=== PATIENT | male | born 1935 | race Caucasian/White ===

== ENCOUNTER 2018-11-02 17:27 | Observation (INO) ==
--- NOTE | 2018-11-02 17:30 | Emergency Department Note ---
Disposition Clinical Impression: Hypoxemia, Acute bronchitis, History of CHF (congestive heart failure) Disposition: Admitted As Inpatient Condition: Good Time of Disposition: 21:12 General Adult HPI - General Stated complaint: "sick for a week" Time Seen by Provider: 11/02/18 17:30 Source: patient Mode of arrival: EMS Limitations: no limitations Nursing Notes Reviewed: Yes Vital Signs Reviewed: Yes - Related Data Home Medications Medication Instructions Recorded Confirmed Calcium Carbonate [Calcium] 500 mg PO DAILY 11/02/18 11/02/18 Carvedilol [Coreg] 6.25 mg PO BIDWM 11/02/18 11/02/18 Furosemide [Lasix] 20 mg PO DAILY 11/02/18 11/02/18 LORazepam [Ativan] 0.5 mg PO BID 11/02/18 11/02/18 Omeprazole [PriLOSEC] 20 mg PO DAILY 11/02/18 11/02/18 RX: Lisinopril [Zestril] 5 mg PO DAILY 11/02/18 11/02/18 Sertraline [Zoloft] 100 mg PO DAILY 11/02/18 11/02/18 Warfarin [Coumadin] 2.5 mg PO 2XW 11/02/18 11/02/18 Warfarin [Coumadin] 5 mg PO 5XW 11/02/18 11/02/18 Allergies Allergy/AdvReac Type Severity Reaction Status Date / Time bee venom protein (honey bee) Allergy See Verified 11/02/18 17:44 Comments Penicillins Allergy See Verified 11/02/18 17:44 Comments Course Course Narrative: The patient remained stable throughout his emergency department stay. His oxygen saturations remained above 95% on 2 L of nasal cannulated oxygen. A trial was attempted without the nasal cannula and his oxygen saturations dropped to 85%. Spoke with Dr. Cruz at 2100 and the patient will be admitted here in [place]. Vital Signs Temperature 98.1 F 11/02/18 17:35 Pulse Rate 86 11/02/18 17:35 Respiratory Rate 20 11/02/18 17:35 Blood Pressure 133/76 11/02/18 17:35 O2 Sat by Pulse Oximetry 92 11/02/18 17:35 Temperature 98.1 F 11/02/18 17:35 Pulse Rate 80 11/02/18 21:50 Respiratory Rate 18 11/02/18 22:30 Blood Pressure 124/78 11/02/18 22:30 O2 Sat by Pulse Oximetry 93 11/02/18 21:50 Oxygen Delivery Oxygen Delivery Nasal Cannula Medical Decision Making - Lab Data Lab results reviewed: Yes I reviewed the patient's lab results. Result diagrams: 11/02/18 18:10 11/02/18 18:10 Lab Results 11/02/18 11/02/18 11/02/18 Range/Units 18:10 18:10 18:10 WBC 8.3 (4.3-11.1) K/mcL RBC 4.18 L (4.19-5.50) M/mcL Hgb 14.8 (12.9-16.9) g/dL Hct 43.3 (37.5-50.1) % MCV 103.6 H (83.0-100.0) fL MCH 35.4 H (28.0-33.3) pg MCHC 34.2 (31.6-35.5) g/dL RDW 18.1 H (11.5-14.5) % Plt Count 133 L (140-400) K/mcL MPV 9.1 L (9.4-12.4) fL Immature Gran % 0.6 (0-4) % Seg Neutrophils % 77.3 % Lymphocytes % 12.0 % Monocytes % 8.9 % Eosinophils % 0.8 % Basophils % 0.4 % Neutrophils # 6.4 (1.6-8.9) K/mcL Lymphocytes # 1.0 (0.6-4.6) K/mcL Monocytes # 0.7 (0.0-1.3) K/mcL Eosinophils # 0.1 (0.0-0.6) K/mcL Basophils # 0.0 (0.0-0.2) K/mcL Platelet Estimate Normal (Normal) Anisocytosis 1+ A (Not Present) Sodium 135 L (136-145) mEq/L Potassium 3.6 (3.5-5.1) mEq/L Chloride 98 (98-107) mEq/L Carbon Dioxide 29 (23-29) mEq/L BUN 8 (8-23) mg/dL Creatinine 0.89 (0.70-1.30) mg/dL Est GFR ( Amer) > 60 (> 60) Est GFR (Non-Af Amer) > 60 (> 60) BUN/Creatinine Ratio 9 (6-26) Glucose 94 (70-105) mg/dL Calculated Osmolality 278 L (280-300) Lactic Acid (0.5-2.2) mmol/L Calcium 8.7 (8.6-10.3) mg/dL Total Bilirubin 1.6 H (0.3-1.0) mg/dL AST 39 (13-39) Units/L ALT 25 (7-52) Units/L Alkaline Phosphatase 260 H (34-104) Units/L B-Natriuretic Peptide 178 H (Less than 100) pg/mL Serum Total Protein 6.4 (6.4-8.9) g/dL Albumin 3.1 L (3.5-5.7) g/dL Globulin 3.3 (2.4-3.5) g/dL Albumin/Globulin Ratio 0.9 L (1.1-2.2) Urine Color (Yellow) Urine Clarity (Clear) Urine pH (5.0-8.0) pH Units Ur Specific [place] (1.010-1.025) Urine Protein (Neg-Trace) mg/dL Urine Glucose (UA) (Normal) mg/dL Urine Ketones (Negative) mg/dL Urine Blood (Negative) Urine Nitrite (Negative) Urine Bilirubin (Negative) Urine Urobilinogen (Normal) mg/dL Ur Leukocyte Esterase (Negative) Ur Culture Indicated? (NO) 11/02/18 11/02/18 Range/Units 18:10 18:10 WBC (4.3-11.1) K/mcL RBC (4.19-5.50) M/mcL Hgb (12.9-16.9) g/dL Hct (37.5-50.1) % MCV (83.0-100.0) fL MCH (28.0-33.3) pg MCHC (31.6-35.5) g/dL RDW (11.5-14.5) % Plt Count (140-400) K/mcL MPV (9.4-12.4) fL Immature Gran % (0-4) % Seg Neutrophils % % Lymphocytes % % Monocytes % % Eosinophils % % Basophils % % Neutrophils # (1.6-8.9) K/mcL Lymphocytes # (0.6-4.6) K/mcL Monocytes # (0.0-1.3) K/mcL Eosinophils # (0.0-0.6) K/mcL Basophils # (0.0-0.2) K/mcL Platelet Estimate (Normal) Anisocytosis (Not Present) Sodium (136-145) mEq/L Potassium (3.5-5.1) mEq/L Chloride (98-107) mEq/L Carbon Dioxide (23-29) mEq/L BUN (8-23) mg/dL Creatinine (0.70-1.30) mg/dL Est GFR ( Amer) (> 60) Est GFR (Non-Af Amer) (> 60) BUN/Creatinine Ratio (6-26) Glucose (70-105) mg/dL Calculated Osmolality (280-300) Lactic Acid 1.6 (0.5-2.2) mmol/L Calcium (8.6-10.3) mg/dL Total Bilirubin (0.3-1.0) mg/dL AST (13-39) Units/L ALT (7-52) Units/L Alkaline Phosphatase (34-104) Units/L B-Natriuretic Peptide (Less than 100) pg/mL Serum Total Protein (6.4-8.9) g/dL Albumin (3.5-5.7) g/dL Globulin (2.4-3.5) g/dL Albumin/Globulin Ratio (1.1-2.2) Urine Color Yellow (Yellow) Urine Clarity Clear (Clear) Urine pH 7.5 (5.0-8.0) pH Units Ur Specific [place] 1.015 (1.010-1.025) Urine Protein Negative (Neg-Trace) mg/dL Urine Glucose (UA) Normal (Normal) mg/dL Urine Ketones Negative (Negative) mg/dL Urine Blood Negative (Negative) Urine Nitrite Negative (Negative) Urine Bilirubin Negative (Negative) Urine Urobilinogen Normal (Normal) mg/dL Ur Leukocyte Esterase Negative (Negative) Ur Culture Indicated? NO (NO) - Radiology Data Radiology results reviewed: Yes I reviewed the patient's radiology results. 2 views of the chest: IMPRESSION: Cardiomegaly with small bilateral effusions and areas of atelectasis. Borderline for interstitial edema. D/ / Al Hills / Al Hills - EKG Data EKG #1 EKG attestation: Yes I reviewed and interpreted this EKG. EKG results narrative: Review EKG shows a normal sinus rhythm with a rate of 87, normal axis, no acute ST elevation or depression appreciated.
[2018-11-02] MEDS ORDERED: methylPREDNISolone 125 MG/2 ML VIAL IVP ONE (17:42)
[2018-11-02] MEDS ORDERED: Ipratropium/Albuterol Neb 3 ML IH ONE (17:42)
[2018-11-02 18:21] LABS: Bilirubin,Urine Negative (Negative); Blood,Urine Negative (Negative); Clarity,Urine Clear (Clear); Color,Urine Yellow (Yellow); Glucose,Urine (UA) Normal (Normal); Ketones,Urine Negative (Negative); Leukocyte Esterase,Urine Negative (Negative); Nitrite,Urine Negative (Negative); PH,Urine 7.5 pH Units (5.0-8.0); Protein,Urine Negative (Neg-Trace); Specific Gravity,Urine 1.015 (1.010-1.025); Urobilinogen,Urine Normal (Normal)
[2018-11-02 18:24] LABS: Basophils % 0.4 %; Eosinophils # 0.1 K/mcL (0.0-0.6); Eosinophils % 0.8 %; Hematocrit 43.3 % (37.5-50.1); Hemoglobin 14.8 g/dL (12.9-16.9); Immature Granulocytes % 0.6 % (0-4); Mean Corpuscular HGB Conc 34.2 g/dL (31.6-35.5); Mean Corpuscular Hemoglobin 35.4 pg (28.0-33.3); Mean Corpuscular Volume 103.6 fL (83.0-100.0); Mean Platelet Volume 9.1 fL (9.4-12.4); Monocytes # 0.7 K/mcL (0.0-1.3); Monocytes % 8.9 %; Neutrophils # 6.4 K/mcL (1.6-8.9); Platelet Count 133 K/mcL (140-400); Red Blood Count 4.18 M/mcL (4.19-5.50); Red Cell Distribution Width 18.1 % (11.5-14.5); Segmented Neutrophils % 77.3 %
[2018-11-02 18:35] LABS: Alanine Aminotransferase 25 Units/L (7-52); Albumin 3.1 g/dL (3.5-5.7); Albumin/Globulin Ratio 0.9 (1.1-2.2); Alkaline Phosphatase 260 Units/L (34-104); Aspartate Amino Transferase 39 Units/L (13-39); BUN/Creatinine Ratio 9 (6-26); Bilirubin,Total 1.6 mg/dL (0.3-1.0); Blood Urea Nitrogen 8 mg/dL (8-23); Calcium 8.7 mg/dL (8.6-10.3); Carbon Dioxide 29 mEq/L (23-29); Chloride 98 mEq/L (98-107); Globulin 3.3 g/dL (2.4-3.5); Glucose 94 mg/dL (70-105); Osmolality,Calculated 278 (280-300); Potassium 3.6 mEq/L (3.5-5.1); Sodium 135 mEq/L (136-145); Total Protein 6.4 g/dL (6.4-8.9); eGFR For Non-African Americans > 60 (> 60)
[2018-11-02 18:40] LABS: Anisocytosis 1+ (Not Present); Platelet Estimate Normal (Normal)
[2018-11-02] MEDS ORDERED: Levofloxacin 750 MG/150 ML 750 MG/150 ML BAG IVPB SCH (21:00)
[2018-11-02] MEDS ORDERED: Ipratropium/Albuterol Neb 3 ML IH PRN ×2 (21:20→22:37)
[2018-11-02] MEDS ORDERED: Naloxone 0.4 MG/ML INJ IVP PRN (22:37)
[2018-11-03] MEDS ORDERED: *HR* LORazepam 1 MG TABLET PO SCH (09:00)
[2018-11-03] MEDS ORDERED: Furosemide 20 MG TABLET PO SCH (09:00)
[2018-11-03 11:44] VITALS: BP 118/62
--- NOTE | 2018-11-03 14:15 | Internal Med History&Physical ---
Addendum entered and electronically signed by Gucci Cruz MD 11/03/18 14:25: I have personally performed a face to face evaluation on this patient. I have r eviewed and agree with the care plan. History and Exam by me shows: Patient was doing well until about one week ago. At that point, he developed a severe cough and this was productive of whitish phlegm in large amounts. He had mild dyspnea that developed on the last day or so before he presented to the emergency room, yesterday. He had no fever, chills, sweats, exposure to illness, etc. He denies other upper respiratory infection symptoms, dyspnea, etc. he denies past history of COPD or heart failure. He has chronic bilateral lower extremity edema for reasons which she is not sure. However, he has wraps of his lower extremities on regular basis. He is also on Coumadin for reasons he is not certain. Remainder of his history and physical were reviewed with patient. While he has long-standing lymphedema, he has no history of CHF or heart problems. He has a poor memory for details and refers frequently to his medication list. 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 Patient has no complaint of chest discomfort, dyspnea, orthopnea, breathing problems, palpitations, nausea or vomiting, constipation or diarrhea, other changes in bowel habits, heartburn, difficulty with urination, kidney problems or kidney stones, fevers chills or sweats, rash or itching, seizures, headache or lightheadedness, heat or cold intolerance, blood problems or anemia, or other new complaints, except as mentioned above. Review of systems is otherwise negative. Examination: (Except as mentioned above): General: In no apparent distress, alert and oriented 3. He is wearing oxygen at 2 L and denies dyspnea while doing so even though the oxygen is lying on his right maxilla. Head: Atraumatic and normocephalic. Eyes: Extraocular muscles are intact, pupils equal round and reactive to light and accommodation. Sclerae anicteric. Ears: External ears are normal to inspection and hearing is mildly diminished. Nose: Patent without lesion noted. Mouth: No intraoral lesions seen. Dentition is poor with several teeth missing or at least in part with multiple caries. Neck: Supple with trachea midline. There is no thyromegaly or adenopathy and carotids are 2+ without bruit heard. Respiratory: No use of accessory muscles. Lungs are remarkable for mild inspiratory wheezing but good airflow. He has a question of egophony which is minimal at the left upper lobe region. No fremitus. Cardiovascular: Regular rate and rhythm without murmur appreciated. Abdomen: Bowel sounds are normal. No hepatosplenomegaly masses or tenderness. Obese and therefore difficult to palpate deeply. Extremities: No cyanosis clubbing or edema, but he is wrapped at the calves, bilaterally. Pulses are palpable and he has mild edema of both feet but capillary refill is adequate and his feet are warm. There is no cord or calf tenderness palpable with his wraps. Neurological: A and O 3. Cranial nerves II through XII are intact. No focal deficits and no abnormal movements or postures. Skin: Warm and non-diaphoretic with no lesions noted. Breasts, pelvic and rectal: Not examined. Oxygen on room air is 94% stays at this level, even with sitting up in chair in minimal activity. Laboratory and x-rays are reviewed. Please see reports. Patient wants to go home and we said that if he is feeling up to it, he is able. We will send him on 10 days of Levaquin and ask that he follow with his family physician in about a week. Original Note: Date of Encounter: 11/03/18 Time of Encounter: 14:12 Assessment and Plan (1) Acute bronchitis Current visit: Yes Status: Acute Patient was evaluated emergency department after presenting with complaints of malaise and shortness of breath over the past week. Patient had complaints of having a productive cough, which she described as a thick white sputum. Initial chest x-ray showed no infectious process but did show vascular congestion and bilateral small pleural effusions. Patient was placed on Levaquin and admitted to the medical floor. This morning patient appears relaxed and currently denies any dyspnea. Continues with productive cough. Request and to possibly be discharged home. Currently afebrile. WBC 8.3 Qualifiers: Bronchitis organism: unspecified organism Qualified Code(s): J20.9 - Acute bronchitis, unspecified (2) Lymphedema Current visit: Yes Status: Chronic No acute issues. Patient presented with bilateral leg, and wraps, which she states home health nursing provides for him weekly. We will continue with current plan of care. Patient states he has a long history of chronic lymphedema (3) History of CHF (congestive heart failure) Current visit: Yes Status: Chronic No acute issues. Patient was admitted for hypoxia, malaise and dyspnea. This morning he states that his dyspnea has resolved. Chest x-ray did show interstitial ask for congestion and bilateral small pleural effusions. Admission BNP was within normal limits. We will continue with current medications. Internal Medicine - H&P: HPI Chief complaint: dyspnea, hypoxia Admitted From: Home Plans for Post Hospital Care: Home History of present illness: Mr. Gaona is a 83 year old male, who presented to emergency department with complaints of feeling ill for the past week. Patient had had complaints of dyspnea and a productive cough. Patient states that he is calm a small amount of a white thick sputum. Patient has a long history of CHF and chronic lymphedema bilateral lower extremities. Patient is a poor historian unable to relate why he is on most of his medications and difficulty being able to discuss is a remote medical history. Per medical records patient was shown to have been placed on oxygen while he is in emergency department and at that time, they had tried to wean his oxygen but had difficulty keeping his saturations above 90%. It was decided that time to have patient admitted overnight for further evaluation. Patient was started on Levaquin for possible bronchitis. Currently patient states that his respiratory effort has improved overnight, but he con tinues to have a productive cough with a thick white sputum received. Initial chest x-ray showed small bilateral pleural effusions and vascular congestion, but no infectious process noted. Patient denies any fever or chills. He denies any chest discomforts or palpitations. Patient presented with leg wraps in place and states that home health nursing changes as well as weekly. Patient states that he is unable to relate why he has Coumadin as a home medication. Patient currently requesting to be discharged to home Past Med Surg Social Fam HX - Past Medical History Medical history: arthritis, atrial fibrillation, CHF, GERD, hyperlipidemia, hypertension Psychiatric history: anxiety, depression - Past Surgical History Surgical History: cholecystectomy, knee replacement Additional surgical history: Left Knee Replacement, Right Hip Replacement - Social History Smoking Status: Former smoker Alcohol use: rarely Drug use: none Internal Medicine - H&P: Meds Calcium Carbonate [Calcium] 500 mg PO DAILY 11/02/18 [History] Carvedilol [Coreg] 6.25 mg PO BIDWM 11/02/18 [History] Furosemide [Lasix] 20 mg PO DAILY 11/02/18 [History] LORazepam [Ativan] 0.5 mg PO BID 11/02/18 [History] Lisinopril [Zestril] 5 mg PO DAILY 11/02/18 [History] Omeprazole [PriLOSEC] 20 mg PO DAILY 11/02/18 [History] Sertraline [Zoloft] 100 mg PO DAILY 11/02/18 [History] Warfarin [Coumadin] 2.5 mg PO 2XW 11/02/18 [History] Warfarin [Coumadin] 5 mg PO 5XW 11/02/18 [History] Allergy/AdvReac Type Severity Reaction Status Date / Time bee venom protein (honey bee) Allergy See Verified 11/02/18 17:44 Comments Penicillins Allergy See Verified 11/02/18 17:44 Comments All Systems PM: A 10-system review of systems was performed and is negative for pertinent findings except as documented above in the HPI. - Constitutional Constitutional: as per HPI, no chills, no fever(s), no night sweats - EENT Eyes: as per HPI, no change in vision, no discharge, no pain, no photophobia Ears: no ear discharge, no ear pain, no tinnitus Nose, mouth and throat: as per HPI, no dysphagia, no nasal discharge, no neck pain, no sore throat - Breasts Breasts: as per HPI - Cardiovascular Cardiovascular ROS IM: as per HPI, no chest pain, no diaphoresis, no dyspnea, no lightheadedness, no palpitations, no syncope - Respiratory Respiratory: as per HPI, no cough, no dyspnea, no wheezing, no excessive phlegm production - Gastrointestinal Gastrointestinal: as per HPI, no abdominal pain, no diarrhea, no hematemesis, no hematochezia, no melena, no nausea, no vomiting - Genitourinary Genitourinary ROS male: as per HPI - Musculoskeletal Musculoskeletal ROS IM: as per HPI, no numbness, no tingling - Integumentary Integumentary IM: as per HPI, no rash, no unusual bruising - Neurological Neurological ROS: as per HPI, no confusion, no convulsions, no focal weakness, no numbness, no tingling, no tremor(s) - Hematologic/Lymphatic Hematologic/Lymphatic: no easy bruising - Constitutional Vitals: Temp Pulse Resp BP Pulse Ox 97.6 F 73 16 118/62 94 11/03/18 11:42 11/03/18 11:42 11/03/18 11:42 11/03/18 11:42 11/03/18 11:42 General appearance: Present: A&O X 3, pleasant - Head Head exam: Present: atraumatic, normocephalic - Eye Eye exam: Present: PERRL, conjuntiva pink, sclera anicteric Pupils: Present: PERRL - Neck Neck exam general surgery: Present: supple, trachea midline. Absent: lymphadenopathy - Respiratory Respiratory exam: Present: CTAB. Absent: accessory muscle use, rales, rhonchi, wheezes Additional comments: Lungs are clear throughout upper [place] with diminished breath sounds. Respiratory effort appears relaxed. No productive cough noted during exam. - Cardiovascular Cardiovascular exam: Present: RRR, +S1, +S2. Absent: diastolic murmur, gallop, rubs, systolic murmur - GI/Abdominal GI/Abdominal exam: Present: normal bowel sounds, soft, no peritoneal signs. Absent: distended, tenderness - Extremities Exam Extremities exam: Present: pedal edema, warm, radial pulses palpable and symmetrical. Absent: calf tenderness, cyanotic Additional comments: Patient was bilateral [place] wraps to legs. - Neurological Exam Neurological exam: Present: CN II-XII intact, oriented X3, no focal deficits. Absent: pronater drift, facial droop, speech deficit - Skin Skin exam: Present: dry, intact Internal Med - H&P Results - Labs CBC & Chem 7: 11/02/18 18:10 11/02/18 18:10 Labs: Short CBC 11/02/18 Range/Units 18:10 WBC 8.3 (4.3-11.1) K/mcL Hgb 14.8 (12.9-16.9) g/dL Hct 43.3 (37.5-50.1) % Plt Count 133 L (140-400) K/mcL Neutrophils # 6.4 (1.6-8.9) K/mcL BMP 11/02/18 18:10 Sodium 135 L Potassium 3.6 Chloride 98 Carbon Dioxide 29 BUN 8 Creatinine 0.89 Glucose 94 Calcium 8.7 Liver Function 11/02/18 Range/Units 18:10 Total Bilirubin 1.6 H (0.3-1.0) mg/dL AST 39 (13-39) Units/L ALT 25 (7-52) Units/L Alkaline Phosphatase 260 H (34-104) Units/L Albumin 3.1 L (3.5-5.7) g/dL Urine 11/02/18 Range/Units 18:10 Urine Color Yellow (Yellow) Urine Clarity Clear (Clear) Urine pH 7.5 (5.0-8.0) pH Units Ur Specific [place] 1.015 (1.010-1.025) Urine Protein Negative (Neg-Trace) mg/dL Urine Glucose (UA) Normal (Normal) mg/dL - Impressions ITS Impressions Chest X-Ray 11/02/18 17:41 IMPRESSION: Cardiomegaly with small bilateral effusions and areas of atelectasis. Borderline for interstitial edema. D/ / Al Hills / Al Hills Interpreting Provider: Al Hills
--- NOTE | 2018-11-03 14:27 | Discharge Summary ---
Addendum entered and electronically signed by Gucci Cruz MD 11/03/18 14:34: I have personally performed a face to face evaluation on this patient. I have r eviewed and agree with the care plan. History and Exam by me shows: Please see my H&P addendum, today. Original Note: Orders not resulted at time of discharge: Pending orders 11/02/18 17:41 ECG 12 lead ECG [ECG] Stat 11/02/18 21:17 Culture,Blood [BC] Stat Date of Encounter: 11/03/18 Time of Encounter: 14:24 - Discharge Diagnosis (1) Acute bronchitis Priority: Primary Status: Acute Comments: Patient had presented with complaints of malaise and dyspnea with a productive cough. Admission chest x-ray showedacute infectious process. Patient has been started on Levaquin and will continue on oral Levaquin 500 mg daily for 10 days. A prescription will be provided. A she has a follow-up with his PCP in one week. Qualifiers: Bronchitis organism: unspecified organism Qualified Code(s): J20.9 - Acute bronchitis, unspecified (2) Lymphedema Priority: Secondary Status: Chronic Comments: No acute issues. Patient has bilateral [place] leg wraps that he presented to emergency department with. Patient will continue with home health visits and return to his PCP for further evaluation and treatment. (3) History of CHF (congestive heart failure) Priority: Secondary Status: Chronic Comments: No acute issues during his stay. Patient's chest x-ray did show vascular congestion and bilateral small pleural effusions. Patient currently able to maintain oxygen levels greater than 90% on room air. We will be discharged to home with Levaquin for possible bronchitis and is instructed to follow-up with his PCP for further violation and treatment. Hospital course: Mr. Gaona is a 83 year old male, who presented to emergency department with complaints of feeling ill for the past week. Patient had had complaints of dyspnea and a productive cough. Patient states that he is calm a small amount of a white thick sputum. Patient has a long history of CHF and chronic lymphedema bilateral lower extremities. Patient is a poor historian unable to relate why he is on most of his medications and difficulty being able to discuss is a remote medical history. Per medical records patient was shown to have been placed on oxygen while he is in emergency department and at that time, they had tried to wean his oxygen but had difficulty keeping his saturations above 90%. Today patient is able to maintain his oxygen saturation greater than 90% while on room air. Patient was evaluated while both at rest and during ambulation. Patient was started on Levaquin for possible bronchitis and will continue on oral Levaquin 500 mg daily for 10 days. Prescription will be provided.. Currently patient states that his respiratory effort has improved overnight, but he continues to have a productive cough with a thick white sputum received. Initial chest x-ray showed small bilateral pleural effusions and vascular congestion, but no infectious process noted. Patient denies any fever or chills. He denies any chest discomforts or palpitations. Patient presented with leg wraps in place and states that home health nursing changes the wraps weekly. Patient is recommended to follow up with his family physician within one week. Discharge discussed with: patient Time spent discussing smoking cessation with patient: 3 to 10 minutes - Time Spent with Patient Total time spent providing and/or coordinating discharge services: Less than 30 minutes - Discharge Medications Home Medications: Calcium Carbonate [Calcium] 500 mg PO DAILY 11/02/18 [History] Carvedilol [Coreg] 6.25 mg PO BIDWM 11/02/18 [History] Furosemide [Lasix] 20 mg PO DAILY 11/02/18 [History] LORazepam [Ativan] 0.5 mg PO BID 11/02/18 [History] Lisinopril [Zestril] 5 mg PO DAILY 11/02/18 [History] Omeprazole [PriLOSEC] 20 mg PO DAILY 11/02/18 [History] Sertraline [Zoloft] 100 mg PO DAILY 11/02/18 [History] Warfarin [Coumadin] 2.5 mg PO 2XW 11/02/18 [History] Warfarin [Coumadin] 5 mg PO 5XW 11/02/18 [History] Allergies/Adverse Reactions: Allergy/AdvReac Type Severity Reaction Status Date / Time bee venom protein (honey bee) Allergy See Verified 11/02/18 17:44 Comments Penicillins Allergy See Verified 11/02/18 17:44 Comments Date of admission: 11/02/18 22:59 Primary care physician: PCP NONE Discharging clinician: Gucci Cruz - Constitutional Vitals: Temp Pulse Resp BP Pulse Ox 97.6 F 73 16 118/62 94 11/03/18 11:42 11/03/18 11:42 11/03/18 11:42 11/03/18 11:42 11/03/18 11:42 General appearance: Present: A&O X 3, pleasant - Head Head exam: Present: atraumatic, normocephalic - Eye Eye exam: Present: PERRL, conjuntiva pink, sclera anicteric Pupils: Present: PERRL - Neck Neck exam general surgery: Present: supple, trachea midline. Absent: lymphadenopathy - Respiratory Respiratory exam: Present: CTAB. Absent: accessory muscle use, rales, rhonchi, wheezes Additional comments: Lungs are clear throughout upper [place] with diminished bases. Respiratory effort appears relaxed. No productive cough noted during exam - Cardiovascular Cardiovascular exam: Present: RRR, +S1, +S2. Absent: diastolic murmur, gallop, rubs, systolic murmur - GI/Abdominal GI/Abdominal exam: Present: normal bowel sounds, soft, no peritoneal signs. Absent: distended, tenderness - Extremities Exam Extremities exam: Present: pedal edema, warm, radial pulses palpable and symmetrical. Absent: calf tenderness, cyanotic Additional comments: Bilateral legs with [place] wraps. - Neurological Exam Neurological exam: Present: CN II-XII intact, oriented X3, no focal deficits. Absent: pronater drift, facial droop, speech deficit - Skin Skin exam: Present: dry, intact - Patient Status Disposition: Home, Self-Care Condition: Good Functional capacity at discharge: independent ambulation Overall status at discharge: patient is progressing back to baseline - Discharge Instructions Follow Up With: NONE,PCP [Primary Care Provider] - Forms: ED Satisfaction Letter - Diet and Activity Activity: increase activity as tolerated Diet: low fat, low cholesterol, low salt diet
--- NOTE | 2018-11-03 14:52 | Physician Discharge Referral ---
Home Health/Hosp Referral Info Transfer to: Home Health Provider in Charge Post Discharge: PCP - Diagnosis (1) Acute bronchitis Priority: Primary Status: Acute (2) Lymphedema Priority: Secondary Status: Chronic (3) History of CHF (congestive heart failure) Priority: Secondary Status: Chronic - Respiratory Orders Oxygen / L per min (prn) Smoking Cessation: Smoking cessation has been advised. For more information, call the [place] Tobacco Quit Line at 3-953-JJXF-NOW. - Diet/Nutrition Diet/Nutrition Orders: No Added Salt (LIZZETTE), Cardiac - Activity Activity Orders: Up ad dolores, Ambulate - Services Needed Following services are medically necessary services: Nursing - Transfer Medications Prescriptions: Albuterol Sulfate [Albuterol Inhaler] 2 puff IH Q6HR PRN #1 inhaler PRN Reason: Dyspnea levoFLOXacin [Levaquin] 500 mg PO DAILY 10 Days #10 tablet Home Medications: Calcium Carbonate [Calcium] 500 mg PO DAILY 11/02/18 [History] Carvedilol [Coreg] 6.25 mg PO BIDWM 11/02/18 [History] Furosemide [Lasix] 20 mg PO DAILY 11/02/18 [History] LORazepam [Ativan] 0.5 mg PO BID 11/02/18 [History] Lisinopril [Zestril] 5 mg PO DAILY 11/02/18 [History] Omeprazole [PriLOSEC] 20 mg PO DAILY 11/02/18 [History] Sertraline [Zoloft] 100 mg PO DAILY 11/02/18 [History] Warfarin [Coumadin] 2.5 mg PO 2XW 11/02/18 [History] Warfarin [Coumadin] 5 mg PO 5XW 11/02/18 [History] Albuterol Sulfate [Albuterol Inhaler] 2 puff IH Q6HR PRN #1 inhaler 11/03/18 [Rx] levoFLOXacin [Levaquin] 500 mg PO DAILY 10 Days #10 tablet 11/03/18 [Rx] Allergies/Adverse Reactions: Allergy/AdvReac Type Severity Reaction Status Date / Time bee venom protein (honey bee) Allergy See Verified 11/02/18 17:44 Comments Penicillins Allergy See Verified 11/02/18 17:44 Comments Certification: Further, I certify that my clinical findings support that this patient is homebound (i.e. absences from home require considerable and taxing effort and are for medical reasons or spiritism services or infrequently or short duration when for other reasons) because: Homebound Reason: Leaving home requires considerable and taxing effort due to condition Attestation: My signature below is to certify that this patient is under my care and that I, or nurse practitioner, or a physician's bilingual office assistant working with me, has a [id number] encounter with this patient.
[2018-11-03] MEDS ORDERED: *HR* Warfarin 5 MG TABLET PO SCH (18:00)
[2018-11-03] MEDS ORDERED: Levofloxacin 750 MG/150 ML 750 MG/150 ML BAG IVPB SCH (21:00)
--- NOTE | 2018-11-05 15:32 | Electrocardiograph Report ---
[address] [id number] Test Date: 2018-11-02 Pat Name: David Gaona Department: 2000 Room: 119 Gender: M [employer]: MEEK : 1935 Requested By: Herb Frias Order Number: [id number] Reading MD: Octavio French Measurements Intervals [place] Rate: 87 P: 22 SD: 200 QRS: -9 QRSD: 95 T: 6 QT: 387 QTc: 431 Interpretive Statements SINUS RHYTHM LOW QRS VOLTAGE IN PRECORDIAL LEADS INCOMPLETE RIGHT BUNDLE BRANCH BLOCK Electronically Signed On 11-05-2018 15:31:09 EST by Octavio French
[2018-11-07] MEDS ORDERED: *HR* Warfarin 2.5 MG TABLET PO SCH (18:00)
== END 2018-11-03 18:05 | disposition home or self-care (01) ==
LOC: INPGRE 17:27 → EMEROOGRE 17:27 → INPGRE 21:19 → UNDODISIN 11-03 18:05

== ENCOUNTER 2021-02-24 13:20 | Inpatient (IN) ==
[2021-02-24 13:42] LABS: Basophils % 0.2 %; Hematocrit 39.6 % (37.5-50.1); Hemoglobin 13.4 g/dL (12.9-16.9); Immature Granulocytes % 1.4 % (0-4); Lymphocytes # 0.7 K/mcL (0.6-4.6); Lymphocytes % 4.2 %; Mean Corpuscular HGB Conc 33.8 g/dL (31.6-35.5); Mean Corpuscular Volume 109.4 fL (83.0-100.0); Mean Platelet Volume 9.5 fL (9.4-12.4); Monocytes # 0.5 K/mcL (0.0-1.3); Monocytes % 3.1 %; Neutrophils # 14.8 K/mcL (1.6-8.9); Red Blood Count 3.62 M/mcL (4.19-5.50); Red Cell Distribution Width 15.7 % (11.5-14.5); Segmented Neutrophils % 91.1 %; White Blood Count 16.2 K/mcL (4.3-11.1)
[2021-02-24 13:44] LABS: Platelet Count 98 K/mcL (140-400)
[2021-02-24 13:48] LABS: INR 1.8; Prothrombin Time 20.6 Seconds (9.4-12.1)
[2021-02-24 13:50] LABS: VBG HCO3 27 mEq/L (21-27); VBG PCO2 43 mmHg (41-51); VBG PO2 38 mmHg (25-50)
[2021-02-24 13:56] LABS: Troponin I < 0.03 ng/mL (< 0.04)
[2021-02-24 14:01] LABS: Alanine Aminotransferase 32 Units/L (7-52); Albumin 2.8 g/dL (3.5-5.7); Albumin/Globulin Ratio 0.8 (1.1-2.2); Alkaline Phosphatase 195 Units/L (34-104); Aspartate Amino Transferase 44 Units/L (13-39); BUN/Creatinine Ratio 11 (6-26); Bilirubin,Total 1.1 mg/dL (0.3-1.0); Blood Urea Nitrogen 15 mg/dL (8-23); Calcium 8.2 mg/dL (8.6-10.3); Carbon Dioxide 26 mEq/L (23-29); Chloride 98 mEq/L (98-107); Creatine Kinase 20 Units/L (30-223); Globulin 3.4 g/dL (2.4-3.5); Glucose 112 mg/dL (70-105); Magnesium 1.1 mg/dL (1.6-2.6); Osmolality,Calculated 282 (280-300); Phosphorous 2.3 mg/dL (2.7-4.5); Potassium 3.7 mEq/L (3.5-5.1); Sodium 135 mEq/L (136-145); Total Protein 6.2 g/dL (6.4-8.9); eGFR For African Americans > 60 (> 60); eGFR For Non-African Americans 50 (> 60)
[2021-02-24 14:09] LABS: Thyroid Stimulating Hormone 3.801 mcIU/mL (0.340-5.600)
[2021-02-24] MEDS ORDERED: 0.9 % Sodium Chloride 1,000 ML ONE (14:25)
[2021-02-24] MEDS ORDERED: Ondansetron 4 MG/2 ML VIAL IVP ONE (14:50)
[2021-02-24] MEDS ORDERED: 0.9 % Sodium Chloride 1,000 ML IVC SCH ×2 (15:00→18:52)
[2021-02-24] MEDS ORDERED: Clindamycin 900 MG/50 ML 900 MG/50 ML IV.SOLN IVPB ONE (15:16)
[2021-02-24] MEDS: ceFAZolin 1,000 MG in Water for inj. (sterile) 10 ML IVP SCH ×2 (15:32→16:36)
[2021-02-24] MEDS ORDERED: levoFLOXacin 750 MG/150 ML 750 MG/150 ML BAG IVPB ONE (15:39)
[2021-02-24] MEDS ORDERED: Doxycycline 100 MG in 0.9 % Sodium Chloride Mini Bag 100 ML IVPB ONE (15:39)
[2021-02-24 17:24] LABS: Bilirubin,Urine Small (Negative); Blood,Urine Large (Negative); Clarity,Urine Cloudy (Clear); Color,Urine Amber (Yellow); Glucose,Urine (UA) Normal (Normal); Ketones,Urine Trace mg/dL (Negative); Leukocyte Esterase,Urine Small (Negative); Nitrite,Urine Positive (Negative); PH,Urine 5.5 pH Units (5.0-8.0); Protein,Urine 100 mg/dL (Neg-Trace); Urobilinogen,Urine Normal (Normal)
[2021-02-24 17:30] LABS: Bacteria,Urine Many per hpf (None-Few); Squamous Epithelial Cell,Urine Moderate per hpf (None-Few); WBC,Urine 30-50 per hpf (0-3)
[2021-02-24] MEDS ORDERED: Furosemide 20 MG TABLET PO SCH (18:52)
[2021-02-24] MEDS ORDERED: Ondansetron 4 MG/2 ML VIAL IVP PRN ×3 (18:52→19:18)
[2021-02-24] MEDS ORDERED: Doxycycline 100 MG in 0.9 % Sodium Chloride Mini Bag 100 ML IVPB SCH (18:52)
[2021-02-24] MEDS ORDERED: Naloxone 0.4 MG/ML INJ IVP PRN ×2 (18:52→19:13)
[2021-02-24] MEDS ORDERED: MOM Conc 10 ML UD.LIQ PO PRN (19:13)
[2021-02-24] MEDS ORDERED: Dextrose Gel 15 GM/37.5 ML TUBE PO PRN ×2 (19:26)
[2021-02-24] MEDS ORDERED: D5% in Water 1,000 ML IVC PRN (19:26)
[2021-02-24] MEDS ORDERED: *HR* Dextrose 50 % in Water (Vial) 50 ML VIAL IVP PRN (19:26)
[2021-02-24] MEDS: Insulin LISPRO 300 UNITS/3 ML VIAL SUBQ SCH (19:52)
[2021-02-24] MEDS ORDERED: levoFLOXacin 500 MG/100 ML 500 MG/100 ML BAG IVPB SCH (20:00)
[2021-02-24] MEDS: 0.9 % Sodium Chloride 1,000 ML IVC SCH (20:56)
[2021-02-24] MEDS ORDERED: *HR* Warfarin 2.5 MG TABLET PO SCH (21:15)
[2021-02-24] MEDS: *HR* LORazepam 0.5 MG TABLET PO SCH (22:37)
[2021-02-24] MEDS: Ipratropium/Albuterol Neb 3 ML IH SCH (23:44)
[2021-02-25] MEDS ORDERED: ceFAZolin 1,000 MG in Water for inj. (sterile) 10 ML IVP SCH
[2021-02-25] MEDS: 0.9 % Sodium Chloride 1,000 ML IVC SCH (03:04)
[2021-02-25] MEDS ORDERED: 0.9 % Sodium Chloride 1,000 ML IVC SCH ×2 (03:24→05:00)
[2021-02-25] MEDS: Ipratropium/Albuterol Neb 3 ML IH SCH ×4 (04:14→20:49)
[2021-02-25 05:06] LABS: Hematocrit 32.5 % (37.5-50.1); Mean Corpuscular HGB Conc 33.8 g/dL (31.6-35.5); Mean Corpuscular Hemoglobin 36.4 pg (28.0-33.3); Mean Corpuscular Volume 107.6 fL (83.0-100.0); Red Blood Count 3.02 M/mcL (4.19-5.50); Red Cell Distribution Width 15.4 % (11.5-14.5); White Blood Count 10.4 K/mcL (4.3-11.1)
[2021-02-25 05:10] LABS: INR 1.7; Platelet Count 68 K/mcL (140-400); Prothrombin Time 19.7 Seconds (9.4-12.1)
[2021-02-25 05:20] LABS: Alanine Aminotransferase 19 Units/L (7-52); Albumin 2.2 g/dL (3.5-5.7); Albumin/Globulin Ratio 0.8 (1.1-2.2); Alkaline Phosphatase 125 Units/L (34-104); Aspartate Amino Transferase 24 Units/L (13-39); BUN/Creatinine Ratio 16 (6-26); Bilirubin,Total 0.9 mg/dL (0.3-1.0); Blood Urea Nitrogen 20 mg/dL (8-23); Calcium 7.4 mg/dL (8.6-10.3); Carbon Dioxide 25 mEq/L (23-29); Chloride 102 mEq/L (98-107); Globulin 2.8 g/dL (2.4-3.5); Glucose 74 mg/dL (70-105); Magnesium 1.7 mg/dL (1.6-2.6); Osmolality,Calculated 277 (280-300); Phosphorous 1.9 mg/dL (2.7-4.5); Potassium 3.3 mEq/L (3.5-5.1); Sodium 133 mEq/L (136-145); eGFR For African Americans > 60 (> 60); eGFR For Non-African Americans 53 (> 60)
[2021-02-25] MEDS ORDERED: CeFAZolin 2 GM/120 ML BAG IVPB SCH (08:00)
[2021-02-25 08:39] LABS: Estimated Average Glucose 94 mg/dl; Hemoglobin A1C 4.9 %
[2021-02-25] MEDS ORDERED: *HR* Warfarin 5 MG TABLET PO SCH ×2 (09:00→18:00)
[2021-02-25] MEDS: Insulin LISPRO 300 UNITS/3 ML VIAL SUBQ SCH ×4 (09:12→20:29)
[2021-02-25] MEDS: lisinopriL 5 MG TABLET PO SCH (09:33)
[2021-02-25] MEDS: carvediloL 6.25 MG TABLET PO SCH ×2 (09:33→16:56)
[2021-02-25] MEDS: *HR* LORazepam 0.5 MG TABLET PO SCH ×2 (09:33→20:29)
[2021-02-25] MEDS: Cholecalciferol (D-3) 1,000 UNIT (25MCG) TABLET PO SCH (09:33)
[2021-02-25] MEDS: Doxycycline 100 MG in 0.9 % Sodium Chloride Mini Bag 100 ML IVPB SCH (12:04)
[2021-02-25] MEDS ORDERED: Warfarin perPT PO PRN ×2 (18:00)
[2021-02-25] MEDS: Acetaminophen 325 MG TABLET PO PRN (20:43)
[2021-02-26] MEDS: Ipratropium/Albuterol Neb 3 ML IH SCH ×4 (03:32→21:24)
[2021-02-26] MEDS: Doxycycline 100 MG in 0.9 % Sodium Chloride Mini Bag 100 ML IVPB SCH ×2 (04:17→13:10)
[2021-02-26] MEDS: Acetaminophen 325 MG TABLET PO PRN ×2 (04:59→21:21)
[2021-02-26 07:07] LABS: INR 1.5; Prothrombin Time 17.6 Seconds (9.4-12.1)
[2021-02-26] MEDS: ceFAZolin 1,000 MG in Water for inj. (sterile) 10 ML IVP SCH (07:41)
[2021-02-26] MEDS: Insulin LISPRO 300 UNITS/3 ML VIAL SUBQ SCH ×4 (08:15→21:36)
[2021-02-26] MEDS: Cholecalciferol (D-3) 1,000 UNIT (25MCG) TABLET PO SCH (08:18)
[2021-02-26] MEDS: lisinopriL 5 MG TABLET PO SCH (08:19)
[2021-02-26] MEDS: *HR* LORazepam 0.5 MG TABLET PO SCH ×2 (08:19→21:22)
[2021-02-26] MEDS: carvediloL 6.25 MG TABLET PO SCH ×2 (08:19→16:48)
[2021-02-26 11:43] LABS: Hematocrit 33.9 % (37.5-50.1); Hemoglobin 11.5 g/dL (12.9-16.9); Mean Corpuscular HGB Conc 33.9 g/dL (31.6-35.5); Mean Corpuscular Hemoglobin 37.2 pg (28.0-33.3); Mean Corpuscular Volume 109.7 fL (83.0-100.0); Red Blood Count 3.09 M/mcL (4.19-5.50); Red Cell Distribution Width 15.6 % (11.5-14.5); White Blood Count 7.6 K/mcL (4.3-11.1)
[2021-02-26 11:50] LABS: Platelet Count 70 K/mcL (140-400)
[2021-02-26 11:55] LABS: Calcium 7.9 mg/dL (8.6-10.3); Magnesium 1.8 mg/dL (1.6-2.6); Potassium 3.5 mEq/L (3.5-5.1)
[2021-02-26] MEDS ORDERED: *HR* Warfarin 7.5 MG TABLET PO ONE (18:00)
[2021-02-26] MEDS ORDERED: levoFLOXacin 750 MG/150 ML 750 MG/150 ML BAG IVPB SCH (21:00)
[2021-02-26] MEDS: Furosemide 20 MG/2 ML VIAL IVP SCH (21:36)
[2021-02-27] MEDS ORDERED: Doxycycline 100 MG VIAL ONE (00:06)
[2021-02-27] MEDS: Doxycycline 100 MG in 0.9 % Sodium Chloride Mini Bag 100 ML IVPB SCH ×2 (00:12→12:33)
[2021-02-27] MEDS: Ipratropium/Albuterol Neb 3 ML IH SCH ×4 (03:41→21:38)
[2021-02-27] MEDS: Acetaminophen 325 MG TABLET PO PRN (05:07)
[2021-02-27] MEDS: Insulin LISPRO 300 UNITS/3 ML VIAL SUBQ SCH ×4 (08:45→21:39)
[2021-02-27] MEDS: *HR* LORazepam 0.5 MG TABLET PO SCH (08:49)
[2021-02-27] MEDS: Cholecalciferol (D-3) 1,000 UNIT (25MCG) TABLET PO SCH (08:49)
[2021-02-27] MEDS: Furosemide 20 MG/2 ML VIAL IVP SCH ×2 (08:49→21:40)
[2021-02-27] MEDS: lisinopriL 5 MG TABLET PO SCH (08:49)
[2021-02-27] MEDS: carvediloL 6.25 MG TABLET PO SCH ×2 (08:49→16:59)
[2021-02-27 09:16] LABS: INR 2.1; Prothrombin Time 24.2 Seconds (9.4-12.1)
[2021-02-27] MEDS ORDERED: Perflutren Lipid Microsphere 1.3 ML in 0.9 % Sodium Chloride 8.7 ML IVP PRN (14:49)
[2021-02-27] MEDS: cefTRIAXone 1,000 MG in 0.9 % Sodium Chloride Mini Bag 100 ML IVPB SCH (15:27)
[2021-02-27] MEDS: Azithromycin 500 MG in 0.9 % Sodium Chloride 250 ML IVPB SCH (15:27)
[2021-02-27] MEDS ORDERED: *HR* Warfarin 2.5 MG TABLET PO ONE (18:00)
[2021-02-27] MEDS: Melatonin 3 MG TABLET PO PRN (21:39)
[2021-02-28] MEDS: Ipratropium/Albuterol Neb 3 ML IH SCH ×4 (03:49→22:00)
[2021-02-28 05:57] LABS: Hematocrit 36.3 % (37.5-50.1); Hemoglobin 12.3 g/dL (12.9-16.9); Mean Corpuscular HGB Conc 33.9 g/dL (31.6-35.5); Mean Corpuscular Hemoglobin 36.7 pg (28.0-33.3); Mean Corpuscular Volume 108.4 fL (83.0-100.0); Mean Platelet Volume 9.6 fL (9.4-12.4); Red Blood Count 3.35 M/mcL (4.19-5.50); Red Cell Distribution Width 15.5 % (11.5-14.5); White Blood Count 5.8 K/mcL (4.3-11.1)
[2021-02-28 06:05] LABS: INR 2.5; Prothrombin Time 27.9 Seconds (9.4-12.1)
[2021-02-28 06:15] LABS: Platelet Count 81 K/mcL (140-400)
[2021-02-28 06:20] LABS: BUN/Creatinine Ratio 22 (6-26); Blood Urea Nitrogen 29 mg/dL (8-23); Carbon Dioxide 27 mEq/L (23-29); Chloride 102 mEq/L (98-107); Glucose 87 mg/dL (70-105); Osmolality,Calculated 285 (280-300); Potassium 3.3 mEq/L (3.5-5.1); Sodium 135 mEq/L (136-145); eGFR For African Americans > 60 (> 60); eGFR For Non-African Americans 52 (> 60)
[2021-02-28] MEDS: Insulin LISPRO 300 UNITS/3 ML VIAL SUBQ SCH ×4 (07:59→21:32)
[2021-02-28] MEDS: cefTRIAXone 1,000 MG in 0.9 % Sodium Chloride Mini Bag 100 ML IVPB SCH (08:01)
[2021-02-28] MEDS: Cholecalciferol (D-3) 1,000 UNIT (25MCG) TABLET PO SCH (08:01)
[2021-02-28] MEDS: carvediloL 6.25 MG TABLET PO SCH ×2 (08:01→15:54)
[2021-02-28] MEDS: lisinopriL 5 MG TABLET PO SCH (08:01)
[2021-02-28] MEDS: Furosemide 20 MG/2 ML VIAL IVP SCH ×2 (08:01→21:32)
[2021-02-28] MEDS: Azithromycin 500 MG in 0.9 % Sodium Chloride 250 ML IVPB SCH (15:52)
[2021-02-28] MEDS ORDERED: *HR* Warfarin 2.5 MG TABLET PO ONE (18:00)
[2021-02-28] MEDS: Melatonin 3 MG TABLET PO PRN (21:32)
[2021-03-01] MEDS: Ipratropium/Albuterol Neb 3 ML IH SCH ×4 (04:19→22:02)
[2021-03-01] MEDS: Insulin LISPRO 300 UNITS/3 ML VIAL SUBQ SCH ×4 (08:35→21:55)
[2021-03-01] MEDS: Furosemide 20 MG/2 ML VIAL IVP SCH ×2 (08:42→21:54)
[2021-03-01] MEDS: cefTRIAXone 1,000 MG in 0.9 % Sodium Chloride Mini Bag 100 ML IVPB SCH (08:42)
[2021-03-01] MEDS: carvediloL 6.25 MG TABLET PO SCH ×2 (08:45→16:38)
[2021-03-01] MEDS: Cholecalciferol (D-3) 1,000 UNIT (25MCG) TABLET PO SCH (08:45)
[2021-03-01] MEDS: lisinopriL 5 MG TABLET PO SCH (08:45)
[2021-03-01 13:18] LABS: INR 2.3; Prothrombin Time 25.8 Seconds (9.4-12.1)
[2021-03-01] MEDS: Azithromycin 500 MG in 0.9 % Sodium Chloride 250 ML IVPB SCH (16:38)
[2021-03-01] MEDS ORDERED: *HR* Warfarin 5 MG TABLET PO ONE (18:00)
[2021-03-01] MEDS: Acetaminophen 325 MG TABLET PO PRN (21:55)
[2021-03-01] MEDS: Melatonin 3 MG TABLET PO PRN (21:55)
[2021-03-02] MEDS: Ipratropium/Albuterol Neb 3 ML IH SCH ×4 (04:00→21:36)
[2021-03-02 05:06] LABS: INR 2.5; Prothrombin Time 27.7 Seconds (9.4-12.1)
[2021-03-02 09:11] LABS: Hematocrit 37.5 % (37.5-50.1); Hemoglobin 12.9 g/dL (12.9-16.9); Mean Corpuscular HGB Conc 34.4 g/dL (31.6-35.5); Mean Corpuscular Hemoglobin 36.4 pg (28.0-33.3); Mean Corpuscular Volume 105.9 fL (83.0-100.0); Mean Platelet Volume 9.4 fL (9.4-12.4); Platelet Count 120 K/mcL (140-400); Red Blood Count 3.54 M/mcL (4.19-5.50); White Blood Count 5.5 K/mcL (4.3-11.1)
[2021-03-02 09:24] LABS: Alanine Aminotransferase 15 Units/L (7-52); Albumin 2.4 g/dL (3.5-5.7); Albumin/Globulin Ratio 0.8 (1.1-2.2); Alkaline Phosphatase 222 Units/L (34-104); Aspartate Amino Transferase 31 Units/L (13-39); BUN/Creatinine Ratio 26 (6-26); Bilirubin,Total 0.9 mg/dL (0.3-1.0); Blood Urea Nitrogen 27 mg/dL (8-23); Calcium 8.2 mg/dL (8.6-10.3); Carbon Dioxide 29 mEq/L (23-29); Chloride 100 mEq/L (98-107); Globulin 3.2 g/dL (2.4-3.5); Glucose 80 mg/dL (70-105); Osmolality,Calculated 282 (280-300); Potassium 3.7 mEq/L (3.5-5.1); Sodium 134 mEq/L (136-145); Total Protein 5.6 g/dL (6.4-8.9); eGFR For African Americans > 60 (> 60); eGFR For Non-African Americans > 60 (> 60)
[2021-03-02] MEDS: cefTRIAXone 1,000 MG in 0.9 % Sodium Chloride Mini Bag 100 ML IVPB SCH (10:25)
[2021-03-02] MEDS: Furosemide 40 MG/4 ML VIAL IVP SCH ×2 (10:25→15:19)
[2021-03-02] MEDS: lisinopriL 5 MG TABLET PO SCH (10:26)
[2021-03-02] MEDS: Acetaminophen 325 MG TABLET PO PRN ×2 (10:27→20:38)
[2021-03-02] MEDS: Insulin LISPRO 300 UNITS/3 ML VIAL SUBQ SCH ×4 (10:27→20:38)
[2021-03-02] MEDS: Cholecalciferol (D-3) 1,000 UNIT (25MCG) TABLET PO SCH (10:27)
[2021-03-02] MEDS: carvediloL 6.25 MG TABLET PO SCH ×2 (10:27→15:20)
[2021-03-02] MEDS: Furosemide 20 MG/2 ML VIAL IVP SCH (10:28)
[2021-03-02] MEDS: Azithromycin 500 MG in 0.9 % Sodium Chloride 250 ML IVPB SCH (15:17)
[2021-03-02] MEDS: Albumin 25% 25gram/100mL 25 GM/100 ML IV.SOLN IVPB SCH (15:19)
[2021-03-02] MEDS ORDERED: *HR* Warfarin 5 MG TABLET PO ONE (18:00)
[2021-03-03] MEDS: Albumin 25% 25gram/100mL 25 GM/100 ML IV.SOLN IVPB SCH ×3 (00:10→15:52)
[2021-03-03] MEDS: Ipratropium/Albuterol Neb 3 ML IH SCH ×4 (04:15→21:48)
[2021-03-03 05:12] LABS: INR 2.2; Prothrombin Time 25.4 Seconds (9.4-12.1)
[2021-03-03] MEDS: Furosemide 40 MG/4 ML VIAL IVP SCH ×2 (08:57→15:52)
[2021-03-03] MEDS: cefTRIAXone 1,000 MG in 0.9 % Sodium Chloride Mini Bag 100 ML IVPB SCH (08:59)
[2021-03-03] MEDS: Cholecalciferol (D-3) 1,000 UNIT (25MCG) TABLET PO SCH (09:04)
[2021-03-03] MEDS: carvediloL 6.25 MG TABLET PO SCH ×2 (09:04→14:28)
[2021-03-03] MEDS: lisinopriL 5 MG TABLET PO SCH (09:04)
[2021-03-03] MEDS: Acetaminophen 325 MG TABLET PO PRN ×2 (09:04→15:51)
[2021-03-03] MEDS: Insulin LISPRO 300 UNITS/3 ML VIAL SUBQ SCH ×4 (09:05→21:10)
[2021-03-03] MEDS: Azithromycin 500 MG in 0.9 % Sodium Chloride 250 ML IVPB SCH (14:25)
[2021-03-03] MEDS ORDERED: Sennosides 8.6 MG TABLET PO PRN (14:41)
[2021-03-03] MEDS ORDERED: *HR* Warfarin 5 MG TABLET PO ONE (18:00)
[2021-03-03] MEDS: Melatonin 3 MG TABLET PO PRN (20:01)
[2021-03-04] MEDS: Albumin 25% 25gram/100mL 25 GM/100 ML IV.SOLN IVPB SCH ×2 (01:02→10:32)
[2021-03-04] MEDS: Ipratropium/Albuterol Neb 3 ML IH SCH ×3 (03:55→17:23)
[2021-03-04] MEDS: Acetaminophen 325 MG TABLET PO PRN (05:35)
[2021-03-04 06:57] LABS: INR 2.6; Prothrombin Time 29.1 Seconds (9.4-12.1)
[2021-03-04 06:59] LABS: Basophils % 0.6 %; Eosinophils # 0.1 K/mcL (0.0-0.6); Eosinophils % 2.6 %; Hematocrit 31.2 % (37.5-50.1); Hemoglobin 10.7 g/dL (12.9-16.9); Immature Granulocytes % 0.9 % (0-4); Lymphocytes # 0.7 K/mcL (0.6-4.6); Lymphocytes % 19.7 %; Mean Corpuscular HGB Conc 34.3 g/dL (31.6-35.5); Mean Corpuscular Hemoglobin 36.4 pg (28.0-33.3); Mean Corpuscular Volume 106.1 fL (83.0-100.0); Mean Platelet Volume 9.9 fL (9.4-12.4); Monocytes # 0.5 K/mcL (0.0-1.3); Monocytes % 15.4 %; Neutrophils # 2.1 K/mcL (1.6-8.9); Red Blood Count 2.94 M/mcL (4.19-5.50); Red Cell Distribution Width 14.7 % (11.5-14.5); Segmented Neutrophils % 60.8 %; White Blood Count 3.5 K/mcL (4.3-11.1)
[2021-03-04 07:02] LABS: Platelet Count 97 K/mcL (140-400)
[2021-03-04 07:06] LABS: BUN/Creatinine Ratio 20 (6-26); Blood Urea Nitrogen 21 mg/dL (8-23); Calcium 8.6 mg/dL (8.6-10.3); Carbon Dioxide 33 mEq/L (23-29); Chloride 95 mEq/L (98-107); Glucose 94 mg/dL (70-105); Osmolality,Calculated 283 (280-300); Potassium 2.9 mEq/L (3.5-5.1); Sodium 135 mEq/L (136-145); eGFR For African Americans > 60 (> 60); eGFR For Non-African Americans > 60 (> 60)
[2021-03-04] MEDS ORDERED: Potassium Chloride Elixir 20 MEQ/15 ML UDC PO ONE (08:35)
[2021-03-04] MEDS: Cholecalciferol (D-3) 1,000 UNIT (25MCG) TABLET PO SCH (09:08)
[2021-03-04] MEDS: cefTRIAXone 1,000 MG in 0.9 % Sodium Chloride Mini Bag 100 ML IVPB SCH (09:08)
[2021-03-04] MEDS: lisinopriL 5 MG TABLET PO SCH (09:08)
[2021-03-04] MEDS: carvediloL 6.25 MG TABLET PO SCH ×2 (09:08→15:45)
[2021-03-04] MEDS: Insulin LISPRO 300 UNITS/3 ML VIAL SUBQ SCH ×4 (09:10→21:19)
[2021-03-04] MEDS: Furosemide 40 MG/4 ML VIAL IVP SCH (15:42)
[2021-03-04] MEDS: Azithromycin 500 MG in 0.9 % Sodium Chloride 250 ML IVPB SCH (15:43)
[2021-03-04] MEDS ORDERED: *HR* Warfarin 2.5 MG TABLET PO ONE (18:00)
[2021-03-04] MEDS: Melatonin 3 MG TABLET PO PRN (21:19)
[2021-03-05 06:33] LABS: INR 2.9; Prothrombin Time 32.5 Seconds (9.4-12.1)
[2021-03-05 08:00] VITALS: BP 144/80
[2021-03-05] MEDS: Insulin LISPRO 300 UNITS/3 ML VIAL SUBQ SCH (08:25)
[2021-03-05] MEDS: lisinopriL 5 MG TABLET PO SCH (08:35)
[2021-03-05] MEDS: carvediloL 6.25 MG TABLET PO SCH (08:44)
[2021-03-05] MEDS: Cholecalciferol (D-3) 1,000 UNIT (25MCG) TABLET PO SCH (08:44)
[2021-03-05] MEDS ORDERED: Furosemide 20 MG TABLET PO SCH (09:00)
[2021-03-05 09:56] LABS: BUN/Creatinine Ratio 19 (6-26); Blood Urea Nitrogen 17 mg/dL (8-23); Calcium 8.7 mg/dL (8.6-10.3); Carbon Dioxide 32 mEq/L (23-29); Chloride 95 mEq/L (98-107); Glucose 68 mg/dL (70-105); Osmolality,Calculated 280 (280-300); Potassium 3.3 mEq/L (3.5-5.1); Sodium 135 mEq/L (136-145); eGFR For African Americans > 60 (> 60); eGFR For Non-African Americans > 60 (> 60)
[2021-03-05] MEDS ORDERED: Potassium Chloride Elixir 20 MEQ/15 ML UDC PO ONE ×2 (10:02→12:00)
[2021-03-05] MEDS ORDERED: *HR* Warfarin 2.5 MG TABLET PO ONE (18:00)
== END 2021-03-05 11:43 | disposition home health service (06) | DRG 871 ==
LOC: EMEROOGRE 13:20 → INPGRE 13:20 → EMEROOGRE 18:51 → SUATTDRO 02-25 15:00
PROVIDERS: ADMIT Nurse Practitioner; ATTEND Family Medicine